=== PATIENT | female | born 1995 | race Native Hawaiian/Other Pacific Islander ===

== ENCOUNTER 2019-11-02 17:30 | Emergency (ER) | payer OTHER ==
[~2019-11-02] VITALS: Ht 160 cm; Wt 80.7 kg
[2019-11-02 17:39] VITALS: BP 145/88; TEMP 99.6
== END 2019-11-02 18:18 | disposition home or self-care (01) ==
LOC: ED 17:30
DX: R06.02 Shortness of breath (principal); R05 Cough
CPT/HCPCS: 99281

== ENCOUNTER 2020-12-20 12:17 | Outpatient (CLI) | payer OTHER | END 2020-12-20 22:14 | disposition home or self-care (01) | LOC: LAB 12:17 | PROVIDERS: ATTEND Nurse Practitioner Family | DX: R19.7 Diarrhea, unspecified (principal) | CPT/HCPCS: 83630; 87015; 87045; 87324; 87328; 87329; 87449; 87899 ==

== ENCOUNTER 2021-05-08 16:20 | Outpatient (CLI) | payer OTHER | END 2021-05-08 19:58 | disposition home or self-care (01) | LOC: RAD 16:20 | PROVIDERS: ATTEND Nurse Practitioner Family | DX: M25.562 Pain in left knee (principal) ==